=== PATIENT | male | born 1975 | race Two or more races ===

== ENCOUNTER 2018-06-20 09:12 | Emergency (ER) | payer SELFPAY ==
[2018-06-20] MEDS ORDERED: SODIUM CHLORIDE 0.9% 1000 ML INFUS.BAG IV ONE ×2 (09:15→11:33)
[2018-06-20] MEDS ORDERED: LORazepam 0.5 MG TABLET PO ONE (09:15)
--- NOTE | 2018-06-20 09:16 | PDOC ---
History of Present Illness - General Chief Complaint: Alcohol intoxication Stated Complaint: INTOX Time Seen by Provider: 06/20/18 09:13 History Source: Patient Exam Limitations: No Limitations - History of Present Illness Initial Comments: 06/20/18 09:16 43 yo male no pmhx here with c/o anxiety difficulty breathing and tingling in his feet after using ecstasy for 2 days. started to use on monday06/18/18, has been using for 2 days. denies cocain, small etoh use in addition. today feels off. states his breathing " stops" where he cant get full breath. brought to hospital via EMS. no witnessed resp pauses or arrest. normal resp rate. no h/o asthma, does have a cough. states he has slept some in the past 48 hours. denies muscle spasms. no chest pain, no palpitations. 06/20/18 10:06 Past History - Past Medical History Allergies/Adverse Reactions: Allergies Allergy/AdvReac Type Severity Reaction Status Date / Time No Known Allergies Allergy Verified 06/20/18 09:34 Home Medications: Ambulatory Orders NK [No Known Home Medication] 06/20/18 *Physical Exam - Physical Exam Comments: 06/20/18 10:08 awake alert lungs clear bilaterally heart rrr no mrg abd soft nt nd ext wwp no edema. no calf tenderness. nuero alert oriented x 3. moves all four ext. speech clear. pscyh anxious appearing but directable. Heart Score/ECG Review #1 General ECG Interpretation: Sinus Rhythm, Normal Intervals, No acute ischemic changes Compared to previous ECG there are: Other (103 sinus tachycardia) ED Treatment Course - LABORATORY CBC & Chemistry Diagram: 06/20/18 09:45 06/20/18 09:45 Medical Decision Making - Medical Decision Making 06/20/18 10:09 43 yo male h/o recent ectasy abuse, here with c/o tingling, anxiety and feeling like he has irregular resp pattern. normal lung exam. normal pulse ox and resp rate. differential dehydration electrolyte abnormality, rhabdo, plan labs iv hydration po ativan to counteract effects of stimulant. reassess 06/20/18 11:32 pt with mild CK elevation , hypokalemia 3.4. given potassium chloried 40 meq, iv hydratin. ckmb also positivel added troponin. pt denies cp. no palpaitona.s ekg with sinus tachyardia 103. 06/20/18 12:10 pt states he feels much better overall. states he does not have chest pain now. but throughout the night he was having a tightness or grabbing sensation across his chest. 06/20/18 12:56 troponin negative. pt bilirubin mildly elevated. recommend fu with GI. given 2 L NS feels improved. fu pcp told to avoid future ectasy or stimulant use in the future. *DC/Admit/Observation/Transfer Diagnosis at time of Disposition: Substance abuse, Ecstasy abuse - Discharge Dispostion Disposition: HOME Condition at time of disposition: Improved Decision to Admit order: No - Referrals Referrals: Eliseo Durán MD [Staff Physician] - - Patient Instructions Printed Discharge Instructions: Getting Treatment for Drug Addiction Additional Instructions: you should avoid ectasy abuse as it can be dangerous. drink plenty of fluids. follow up with your primary doctor if you would like to seek rehab for addiction , you can go to [facility] at [address] [place] [address]. [facility]. [phone]. return for any problems or concerns. your liver test is mildly elevated today. you should avoid heavy alcohol intake, you should also follow up with a manager scheduling. you can call dr Durán for followup. see referral information for phone number and call to schedule at [facility]. return for any problems or concerns. - Post Discharge Activity
[2018-06-20 09:31] VITALS: TEMP 97.7; BMI 26.6
[2018-06-20] MEDS ORDERED: LORazepam 0.5 MG TABLET ONE (09:49)
[2018-06-20 09:56] LABS: EOS % 0.8 % (0-4.5); HEMATOCRIT 46.7 % (35.4-49); HEMOGLOBIN 15.9 GM/dl (11.7-16.9); LYMPH % 12.7 % (8-40); MCH 30.2 pg (25.7-33.7); MEAN PLT VOLUME 7.6 fl (7.5-11.1); MONO % 8.3 % (3.8-10.2); NEUT % 76.2 % (42.8-82.8); PLATELET COUNT 264 K/MM3 (134-434); RBC 5.25 M/mm3 (4.00-5.60); WHITE BLOOD COUNT 9.9 K/mm3 (4.0-10.8)
[2018-06-20 10:12] LABS: BILIRUBIN,TOTAL 1.8 mg/dl (0.2-1); CALCIUM 8.8 mg/dl (8.5-10); CREATININE 0.9 mg/dl (0.55-1.3); POTASSIUM 3.3 mmol/L (3.5-5.1); TOT PROT 7.1 g/dl (6.4-8.2)
[2018-06-20] MEDS ORDERED: KETOROLAC TROMETHAMINE 15 MG/ML VIAL IVPUSH ONE (10:40)
[2018-06-20] MEDS ORDERED: ACETAMINOPHEN 1000 MG/100 ML VIAL (NON FORMULARY) IVPB ONE (10:41)
[2018-06-20 12:35] VITALS: BP 121/87; PULSE 109
--- NOTE | 2018-06-20 15:21 | EKG ---
Test Reason : Blood Pressure : / mmHG Vent. Rate : 103 BPM Atrial Rate : 103 BPM P-R Int : 142 ms QRS Dur : 078 ms QT Int : 354 ms P-R-T Axes : 068 077 069 degrees QTc Int : 463 ms SINUS TACHYCARDIA OTHERWISE NORMAL ECG NO PREVIOUS ECGS AVAILABLE Confirmed by CELI MIDDLETON, MAURICIO ([id number]) on 06/20/2018 3:20:37 PM Referred By: Fiordaliza Ocampo Confirmed By:MAURICIO ALATORRE MD
== END 2018-06-20 13:19 | disposition home or self-care (01) ==
LOC: FER 09:12
PROC: 3E0337Z Introduction of Electrolytic and Water Balance Substance into Peripheral Vein, Percutaneous Approach (ICD-10-PCS; principal; 2018-06-20)
DX: F19.10 Other psychoactive substance abuse, uncomplicated (principal)
CPT/HCPCS: 36415; 80053; 82550; 82553; 84484; 85025; 87389; 93005; 99283-25; J7030